=== PATIENT | male | born 1985 | race Caucasian/White ===

== ENCOUNTER 2016-11-19 13:10 | Emergency (ER) | payer SELFPAY ==
[2016-11-19 13:37] VITALS: BP 99/73
[2016-11-19] MEDS ORDERED: Acetaminophen/HYDROcodone 325-10 MG Tab PO ONE (13:54)
[2016-11-19] MEDS ORDERED: Acetaminophen/HYDROcodone 325-10 MG Tab ONE (13:57)
--- NOTE | 2016-11-19 14:02 | EDM.PDOC ---
ED HPI GENERAL MEDICAL PROBLEM - General Chief Complaint: Upper Extremity Injury/Pain Stated Complaint: L SHOULDER INJURY Time Seen by Provider: 11/19/16 13:43 Source of Information: Reports: Patient History Limitations: Reports: No Limitations - History of Present Illness INITIAL COMMENTS - FREE TEXT/NARRATIVE: Patient presents with left shoulder pain after lifting an entertainment center at home. This happened shortly prior to arrival and he says he felt a pop and now has pain in the superior shoulder. No numbness. He denies any LOC, neck pain or other injuries. Left Posterior Shoulder Pain Score (Numeric/FACES): 9 - Related Data Allergies Allergy/AdvReac Type Severity Reaction Status Date / Time No Known Allergies Allergy Verified 11/26/15 11:48 Home Meds: Home Meds . [No Known Home Meds] 11/26/15 [History] Past Medical History - Past Health History Medical/Surgical History: Denies Medical/Surgical History Social & Family History - Family History Family Medical History: Unobtainable - Tobacco Use Smoking Status *Q: Current Every Day Smoker Years of Tobacco use: 13 Packs/Tins Daily: 1 Used Tobacco, but Quit: No Second Hand Smoke Exposure: No - Caffeine Use Caffeine Use: Reports: Coffee, Soda - Alcohol Use Days Per Week of Alcohol Use: 1 Number of Drinks Per Day: 1 Total Drinks Per Week: 1 - Recreational Drug Use Recreational Drug Use: No Recreational Drug Type: Reports: Marijuana/Hashish - Living Situation & Occupation Living situation: Reports: with Significant Other Occupation: Employed Review of Systems - Review of Systems Review Of Systems: ROS reveals no pertinent complaints other than HPI. ED EXAM, GENERAL - Physical Exam Exam: See Below Exam Limited By: No Limitations General Appearance: Alert, WD/WN, No Apparent Distress Eye Exam: Bilateral Eye: EOMI, Normal Inspection, PERRL Ears: Normal External Exam, Hearing Grossly Normal Nose: Normal Inspection, No Blood Throat/Mouth: Normal Lips, Normal Voice, No Airway Compromise Head: Atraumatic, Normocephalic Neck: Full Range of Motion Respiratory/Chest: No Respiratory Distress, Lungs Clear, Normal Breath Sounds, No Accessory Muscle Use Cardiovascular: Regular Rate, Rhythm, No Murmur Extremities: Other (Left shoulder is tender to palpation at the AC joint, more on the clavicular portion but the rest of the clavicle is nontender and no deformity noted. ROM is pain limited to 60 degrees of forward flexion, internal rotation to beltline; he can reach and touch the opposite shoulder. Full painfree ROM of elbow, wrist hand and all other extremities.) Neurological: Alert, Oriented, Normal Cognition, No Motor/Sensory Deficits Psychiatric: Normal Affect, Normal Mood Skin Exam: Warm, Dry, Intact, Normal Color, No Rash Course - Vital Signs Last Recorded V/S: Last Vital Signs Temp 97.9 F 11/19/16 13:24 Pulse 82 11/19/16 13:24 Resp 18 11/19/16 13:24 BP 99/73 11/19/16 13:24 Pulse Ox - Orders/Labs/Meds Orders: Active Orders 24 hr Category Date Time Status Shoulder Comp Lt [CR] Stat Exams 11/19/16 13:21 Taken Meds: Medications Discontinued Medications Generic Name Dose Route Start Last Admin Trade Name Roque PRN Reason Stop Dose Admin Hydrocodone Bitart/Acetaminophen 1 tab 11/19/16 13:54 11/19/16 14:00 [place] 325-10 Mg PO 11/19/16 13:55 1 tab ONETIME ONE Administration Hydrocodone Bitart/Acetaminophen Confirm 11/19/16 13:57 11/19/16 14:02 [place] 325-10 Mg Administered 11/19/16 13:58 Not Given Dose 1 tab .ROUTE .STK-MED ONE - Re-Assessments/Exams Free Text/Narrative Re-Assessment/Exam: 11/19/16 14:03 Xrays reveal no evidence of fracture or dislocation. Discussed findings with patient. He wants something for the pain. He denies any use of narcotics since he broke a clavicle 16 years ago. He has a services delivery driver coming to get him. 11/19/16 14:27 Radiologist confirms no bony pathology. Sling is placed on left arm. Advised patient to wear sling for a week and may work with no use of left arm. Should follow up with a PCP in a week for recheck. If not improving may need an MRI. If worsening should recheck sooner. Pt discharged in stable condition. Departure - Departure Time of Disposition: 14:29 Disposition: Home, Self-Care 01 Condition: good Clinical Impression: Left shoulder strain Qualifiers: Encounter type: initial encounter Qualified Code(s): S46.912A - Strain of unspecified muscle, fascia and tendon at shoulder and upper arm level, left arm , initial encounter - Discharge Information Forms: ED Department Discharge Additional Instructions: 1. Wear sling for a week to support arm and avoid re-injury to shoulder. You should remove the sling 3-4 times a day for gentle ROM of shoulder. 2. Drink 8 cups of water daily. 3. Take the hydrocodone as directed for pain control. 4. Ibuprofen 600 mg every 8 hours will also be helpful for pain control. 5. Follow up with PCP in a week for recheck; sooner if worsening. - My Orders Last 24 Hours: My Active Orders 11/19/16 13:21 Shoulder Comp Lt [CR] Stat - Assessment/Plan Last 24 Hours: My Active Orders 11/19/16 13:21 Shoulder Comp Lt [CR] Stat
== END 2016-11-19 14:43 | disposition home or self-care (01) ==
LOC: KA.ED 13:10
DX: S46.912A Strain of unspecified muscle, fascia and tendon at shoulder and upper arm level, left arm, initial encounter (principal); F17.210 Nicotine dependence, cigarettes, uncomplicated; X50.0XXA Overexertion from strenuous movement or load, initial encounter; Y92.009 Unspecified place in unspecified non-institutional (private) residence as the place of occurrence of the external cause
CPT/HCPCS: 73030; 99283; A9270